=== PATIENT | female | born 1990 | race Caucasian/White ===

== ENCOUNTER → 2018-03-13 | Outpatient (CLI) | payer OTHER ==
--- NOTE | 2018-03-13 10:40 | RAD ---
History: Coccygeal pain. Comparison: None. Findings: AP and lateral views lumbar spine, 3 images. 5 lumbar type vertebral bodies are present. No acute fracture or acute malalignment is identified. No spondylolysis or spondylolisthesis is seen. No significant degeneration is appreciated. Impression: Unremarkable lumbar spine radiographs. Electronically signed by: Tyrel Reilly MD (03/13/2018 10:36 AM) [facility]
== END | disposition home or self-care (01) ==
LOC: DXRAD 09:05
PROVIDERS: ATTEND Family Medicine
DX: M53.3 Sacrococcygeal disorders, not elsewhere classified (principal)
CPT/HCPCS: 72100

== ENCOUNTER 2019-02-04 02:13 | Emergency (ER) | payer OTHER ==
[~2019-02-04] VITALS: Ht 154.9 cm; Wt 88.5 kg
--- NOTE | 2019-02-04 02:43 | PHYS DOC ---
Past History Past Medical History: Depression, High Cholesterol Past Surgical History: Smoking: Non-smoker Alcohol Use: Occasionally Drug Use: None Adult General Chief Complaint Chief Complaint: NAUSEA/VOMITING/DIARRHEA HPI HPI Patient is a 28-year-old female with nausea and vomiting that started 3 days ago and has improved over time however diarrhea started 2 days ago and continues. She reports feeling lightheaded with standing. Better with laying down. There was some blood in the emesis after multiple episodes of vomiting. This blood has since subsided even while she was vomiting. There has been no black or tarry-looking stool. No recent travel. Patient recently completed a course of antibiotics, she cannot remember which one, for an upper respiratory and ear infection a week to 10 days ago. She noted a fever at home on Monday. She reports diffuse abdominal pain and cramping. This seems to get better with bowel movements.[] Review of Systems Review of Systems Constitutional: Denies fever or chills [] Eyes: Denies change in visual acuity, redness, or eye pain [] HENT: Denies nasal congestion or sore throat [] Respiratory: Denies cough or shortness of breath [] Cardiovascular: No chest pain or palpitations[] GI: See history of present illness[] : Denies dysuria or hematuria [] Musculoskeletal: Denies back pain or joint pain [] Integument: Denies rash or skin lesions [] Neurologic: Denies headache, focal weakness or sensory changes [] Endocrine: Denies polyuria or polydipsia [] All other systems were reviewed and found to be within normal limits, except as documented in this note. Physical Exam Physical Exam Constitutional: Well developed, well nourished, no acute distress, non-toxic appearance. [] HENT: Normocephalic, atraumatic, bilateral external ears normal, oropharynx moist, no oral exudates, nose normal. [] Eyes: PERRLA, EOMI, conjunctiva normal, no discharge. [] Neck: Normal range of motion, no tenderness, supple, no stridor. [] Cardiovascular:Heart rate regular rhythm, no murmur [] Lungs & Thorax: Bilateral breath sounds clear to auscultation [] Abdomen: Bowel sounds normal, soft, diffuse tenderness, no rebound, no guarding , no rigidity, no masses, no pulsatile masses. [] Skin: Warm, dry, no erythema, no rash. [] Back: No tenderness, no CVA tenderness. [] Extremities: No tenderness, no cyanosis, no clubbing, ROM intact, no edema. [] Neurologic: Alert and oriented X 3, normal motor function, normal sensory function, no focal deficits noted. [] Psychologic: Affect normal, judgement normal, mood normal. [] Current Patient Data Vital Signs Vital Signs Date Time Temp Pulse Resp B/P (MAP) Pulse Ox O2 Delivery O2 Flow Rate FiO2 02/04/19 02:16 98.2 63 16 95 Room Air EKG EKG [] Radiology/Procedures Radiology/Procedures [] Course & Med Decision Making Course & Med Decision Making Pertinent Labs and Imaging studies reviewed. (See chart for details) ED course: Patient arrived, was placed in bed, and tolerated exam well. She was given IV fluids as well as antiemetics and antispasmodics which significantly improved her discomfort. She was oral intake tolerant while in the emergency department. After the return of the laboratory studies, these were discussed with the patient and her who voiced understanding. All questions were answered. She was discharged in improved condition. Medical decision making: Patient does not appear to have any significant anemia , no evidence of appendicitis nor cholecystitis on physical exam, no oral intake intolerance.[] Dragon Disclaimer Dragon Disclaimer This electronic medical record was generated, in whole or in part, using a voice recognition dictation system. Departure Departure: Impression: Primary Impression: Nausea vomiting and diarrhea Disposition: 01 HOME, SELF-CARE Condition: IMPROVED Referrals: DEVIN ROBERTSON MD (PCP) Follow-up in 2 days Patient Instructions: Diet for Diarrhea, Adult, Nausea and Vomiting Additional Instructions: Drink plenty of fluids, frequent small sips. No fatty foods, no milk, and no pepper for the next 48 hours. For the next 48 hours eat a diet rich in carbohydrates with foods such as bananas, rice, applesauce, and toast. Follow- up with your regular doctor in 2 days. Return to the ER if worsening discomfort , unable to tolerate liquids, blood in your stool or emesis, or any other concerns. Scripts Loperamide HCl (Imodium A-D) 2 Mg Capsule 2 MG PO DIRECTED for DIARRHEA, #20 CAP 1 tablet after each loose stool, maximum of 4 tablets a day Prov: FAM GOVEA DO 02/04/19 Metoclopramide Hcl (REGLAN) 10 Mg Tablet 10 MG PO QID for nausea and vomiting, #30 TAB Prov: FAM GOVEA DO 02/04/19 Hyoscyamine Sulfate (LEVSIN) 0.125 Mg Tablet 0.125 MG PO QID for abdominal pain/cramping, #30 TAB Prov: FAM GOVEA DO 02/04/19 Ciprofloxacin Hcl (CIPRO) 500 Mg Tablet 1 TAB PO BID for DIARRHEA, #6 TAB Prov: FAM GOVEA DO 02/04/19 FAM GOVEA DO Feb 04, 2019 02:43
[2019-02-04] MEDS ORDERED: PROCHLORPERAZINE 10 MG/2 ML VIAL. IV ONE (03:00)
[2019-02-04] MEDS ORDERED: IV NORMAL SALINE 1,000ML 1,000 ML IV SCH (03:00)
[2019-02-04] MEDS ORDERED: HYOSCYAMINE 0.125 MG TAB.RAPDIS PO ONE (03:00)
[2019-02-04 03:20] LABS: BASO % 0 % (0-3); EOS % 0 % (0-3); HEMATOCRIT 42.4 % (36.0-47.0); HEMOGLOBIN 14.4 g/dL (12.0-15.5); LYMPH # 2.4 x10^3/uL (1.0-4.8); LYMPH % 19 % (24-48); MEAN CORPUSCULAR HEMOGLOBIN 30 pg (25-35); MEAN CORPUSCULAR HGB CONC 34 g/dL (31-37); MEAN CORPUSCULAR VOLUME 87 fL (79-100); MONO # 0.9 x10^3/uL (0.0-1.1); MONO % 8 % (0-9); NEUT % 73 % (31-73); PLATELET COUNT 336 x10^3/uL (140-400); RED BLOOD COUNT 4.86 x10^6/uL (3.50-5.40); RED CELL DISTRIBUTION WIDTH 13.2 % (11.5-14.5); WHITE BLOOD COUNT 12.3 x10^3/uL (4.0-11.0)
[2019-02-04 03:41] LABS: ALBUMIN 3.8 g/dL (3.4-5.0); ALBUMIN/GLOBULIN RATIO 0.8 (1.0-1.7); CALCIUM 8.7 mg/dL (8.5-10.1); CREATININE 0.9 mg/dL (0.6-1.0); GFR 75.7; POTASSIUM 3.3 mmol/L (3.5-5.1); TOTAL BILIRUBIN 0.3 mg/dL (0.2-1.0); TOTAL PROTEIN 8.6 g/dL (6.4-8.2)
[2019-02-04 04:12] LABS: BACTERIA,URINE FEW /HPF (0-FEW); BILIRUBIN,URINE NEG (NEG); GLUCOSE,URINE NEG (NEG); NITRITE,URINE NEG (NEG); RBC,URINE 0 /HPF (0-2); U PREG PATIENT NEGATIVE (NEG); UROBILINOGEN,URINE 0.2 mg/dL (0.2 mg/dL)
[2019-02-04 04:13] LABS: CLARITY,URINE CLEAR; COLOR,URINE YELLOW; FECAL OB PT POSITIVE (NEG); SQUAMOUS EPITHELIAL CELL,UR MANY /LPF
[2019-02-04] MEDS ORDERED: HYOS0.1264 PO (04:24)
[2019-02-04] MEDS ORDERED: METO10TA81 PO (04:24)
[2019-02-04] MEDS ORDERED: CIPR500T94 PO (04:24)
[2019-02-04] MEDS ORDERED: LOPE2CAP88 PO (04:24)
[2019-02-04 04:34] VITALS: BP 106/67
== END 2019-02-04 04:35 | disposition home or self-care (01) ==
LOC: ER 02:13
DX: R11.2 Nausea with vomiting, unspecified (principal); R19.7 Diarrhea, unspecified; R10.84 Generalized abdominal pain; R42 Dizziness and giddiness; F32.9 Major depressive disorder, single episode, unspecified; E78.00 Pure hypercholesterolemia, unspecified; Z98.890 Other specified postprocedural states
CPT/HCPCS: 36415; 80053; 81001; 81025; 82274; 83690; 85025; 85610; 87045; 96361; 96374; 99284; J0780; J7030